=== PATIENT | female | born 1940 | race Caucasian/White ===

== ENCOUNTER 2017-02-14 11:03 | Observation (INO) | payer OTHER ==
[~2017-02-14] VITALS: Ht 165.1 cm; Wt 69.4 kg
[~2017-02-14 11:03] MED LIST: ALBUTEROL; ALPR1TAB10 PO; ASPI325T4 PO; CARV6.2512 PO; CHOL2000 PO; DIGO0.12 PO; FLUT1DIS3 INH; FURO40TA6 PO; HYDR-3342 PO; IRON15TA3 PO; ISOS10TA2 PO; LISI5TAB7 PO; MULT-717 PO; OXYC1TAB9 PO; SIMV20TA3 PO; SPIR25TA3 PO; TIOT18CA INH; VIT1CAPS42 PO; oxygen INH
[2017-02-14 12:00] VITALS: BP 130/60
[2017-02-14] MEDS ORDERED: CEFAZOLIN PMX 1GM/50ML 50 ML IV ONE (12:00)
[2017-02-14] MEDS ORDERED: CHOL20002 PO (12:26)
[2017-02-14] MEDS ORDERED: FURO40TA6 PO (12:26)
[2017-02-14 12:34] LABS: BLOOD UREA NITROGEN 14 mg/dL (7-18)
[2017-02-14] MEDS ORDERED: FENTANYL PF 100 MCG/2ML ONE (12:46)
[2017-02-14] MEDS ORDERED: MIDAZOLAM 1 MG/ML, 5ML ONE (12:46)
[2017-02-14] MEDS ORDERED: CEFAZOLIN PMX 1GM/50ML 50 ML ONE (12:47)
[2017-02-14] MEDS ORDERED: CEFAZOLIN 1,000 MG ONE (12:47)
[2017-02-14] MEDS ORDERED: LIDOCAINE 2%, 20ML ONE (12:47)
[2017-02-14] MEDS ORDERED: BUPIVACAINE 0.25% ONE (13:00)
[2017-02-14 15:58] VITALS: BP 107/57
[2017-02-14] MEDS: SODIUM CHLORIDE 0.9% 1,000 ML IV SCH (16:17)
[2017-02-14] MEDS: CARVEDILOL 6.25 MG TABLET PO SCH (17:23)
[2017-02-14] MEDS: OXYcodone/APAP 10/325MG TABLET PO PRN (17:24)
[2017-02-14] MEDS: IPRATROPIUM 0.5 MG/2.5 ML INHA NPPB SCH (18:35)
[2017-02-14 19:10] VITALS: BP 108/54
[2017-02-14] MEDS ORDERED: SIMVASTATIN 20 MG TABLET PO SCH (21:00)
[2017-02-14] MEDS: CEFAZOLIN PMX 1GM/50ML 50 ML IVPB SCH (21:33)
[2017-02-15] MEDS: IPRATROPIUM 0.5 MG/2.5 ML INHA NPPB SCH ×3 (00:48→07:05)
[2017-02-15] MEDS: OXYcodone/APAP 10/325MG TABLET PO PRN ×2 (02:19→09:14)
[2017-02-15 03:00] VITALS: BP 111/59
[2017-02-15] MEDS: CARVEDILOL 6.25 MG TABLET PO SCH (06:14)
[2017-02-15] MEDS: CEFAZOLIN PMX 1GM/50ML 50 ML IVPB SCH (06:14)
[2017-02-15 07:14] VITALS: BP 100/57
[2017-02-15] MEDS: SODIUM CHLORIDE 0.9% 1,000 ML IV SCH (08:17)
[2017-02-15] MEDS ORDERED: DIGOXIN 0.125 MG TABLET PO SCH (09:00)
[2017-02-15] MEDS ORDERED: SPIRONOLACTONE 25 MG TABLET PO SCH (09:00)
[2017-02-15] MEDS ORDERED: FUROSEMIDE 40 MG TABLET PO SCH (09:00)
[2017-02-15] MEDS ORDERED: FLUTICASONE/VILANTEROL 100-25MCG/INH INH SCH (09:00)
[2017-02-15] MEDS ORDERED: FUROSEMIDE 20 MG/2 ML IV ONE (10:00)
== END 2017-02-15 11:46 | disposition home or self-care (01) ==
LOC: CACL 11:03 → 5SO 14:31 → INTOOBSV 14:41 → 5SO 14:41 → CACL 14:41 → DCLOUNGE 02-15 11:23
PROVIDERS: ADMIT Internal Medicine Cardiovascular Disease; ATTEND Internal Medicine Cardiovascular Disease
DX: I50.22 Chronic systolic (congestive) heart failure (principal); I42.9 Cardiomyopathy, unspecified; I10 Essential (primary) hypertension; E78.5 Hyperlipidemia, unspecified; E87.5 Hyperkalemia; I25.10 Atherosclerotic heart disease of native coronary artery without angina pectoris; I45.9 Conduction disorder, unspecified; I49.1 Atrial premature depolarization; Z99.81 Dependence on supplemental oxygen; Z95.2 Presence of prosthetic heart valve; Z95.1 Presence of aortocoronary bypass graft
CPT/HCPCS: 33249; 36415; 71010; 80048; 85025; 85610; 93005; 94640; 96365; 96375; 96376; C1721; C1779; C1892; C1895; G0378; J0690; J1940; J2250; J3010; J3490; J7030; Q9967; J7644

== ENCOUNTER 2020-06-09 15:40 | Inpatient (IN) | payer MEDICARE, OTHER ==
[~2020-06-09] VITALS: Ht 165.1 cm; Wt 53.3 kg
[~2020-06-09 15:40] MED LIST changes: +ASPI325T17 PO; -ASPI325T4 PO; +CHOL20002 PO; +OXYC1TAB18 PO; -OXYC1TAB9 PO; +SIMV20TA19 PO; -SIMV20TA3 PO; -SPIR25TA3 PO; +SPIR25TA5 PO
[2020-06-09] MEDS ORDERED: SODIUM CHLORIDE 0.9% 1,000ML IVBOLUS ONE ×2 (16:00→17:00)
[2020-06-09] MEDS ORDERED: SODIUM CHLORIDE FLUSH 10ML SYR IVF ONE (16:00)
--- NOTE | 2020-06-09 16:00 | NUR ---
PT PLACED IN HOSPITAL GOWN. PT ON CARDIAC AND VITALS MONITORS. PT RECTAL TEMP 94.8. HEATER HOSE PLACED ON PT. ERP AWARE. PT A&OX2. PT MOSTLY DOZING OFF AND ON. WILL CONTINUE TO MONITOR.
[2020-06-09 16:19] LABS: MEAN CORPUSCULAR HEMOGLOBIN 20.6 pg (27.0-34.8); MEAN CORPUSCULAR VOLUME 70.4 fL (80-100); PLATELET COUNT 187 x10^3/uL (130-400); RED CELL DISTRIBUTION WIDTH 19.9 % (9.6-15.2)
[2020-06-09 16:25] LABS: MEAN CORPUSCULAR HGB CONC 29.2 g/dL (32.4-35.8)
[2020-06-09 16:26] LABS: ALANINE AMINOTRANSFERASE 18 U/L (12-78); ALBUMIN 2.9 g/dL (3.4-5.0); CALCIUM 8.2 mg/dL (8.5-10.1); CHLORIDE 99 mmol/L (98-107); CREATININE 2.36 mg/dL (0.55-1.02)
[2020-06-09 16:30] LABS: ALKALINE PHOSPHATASE 86 U/L (45-117); BILIRUBIN,TOTAL 0.9 mg/dL (0.2-1.0); TOTAL PROTEIN 6.5 g/dL (6.4-8.2); TROPONIN I 0.051 ng/mL (0.000-0.045)
[2020-06-09] MEDS ORDERED: FUROSEMIDE 40 MG/4 ML IV ONE ×2 (16:30→23:00)
[2020-06-09 16:32] LABS: ANION GAP 7 mmol/L (5-15)
[2020-06-09] MEDS ORDERED: FUROSEMIDE 40 MG/4 ML ONE (16:36)
[2020-06-09 16:42] LABS: BASOPHILS # (AUTO) 0.01 x10^3/uL (0-0.1); BASOPHILS % (AUTO) 0 % (0-1); EOSINOPHILS # (AUTO) 0.05 x10^3/uL (0-0.4); EOSINOPHILS % (AUTO) 1 % (1-7); LYMPHOCYTES # (AUTO) 0.53 x10^3/uL (1-3.4); LYMPHOCYTES % (AUTO) 8 % (22-44); MD MORPH REVIEW ONLY; MONOCYTES # (AUTO) 0.43 x10^3/uL (0.2-0.8); MONOCYTES % (AUTO) 6 % (2-9); NEUTROPHILS # (AUTO) 6.05 x10^3/uL (1.8-6.8); NEUTROPHILS % (AUTO) 86 % (42-75)
[2020-06-09 16:43] LABS: ANISOCYTOSIS 1+; HYPOCHROMIA 1+; MICROCYTOSIS 1+
[2020-06-09 16:44] LABS: OVALOCYTES 1+; POLYCHROMASIA 1+
[2020-06-09 16:46] LABS: <PLATELET ESTIMATE> ADEQUATE; <PLT MORPHOLOGY> NORMAL PLT MORPH; TEAR DROPS 1+
--- NOTE | 2020-06-09 16:55 | NUR ---
PT BP HAS MADE SMALL IMPROVEMENT AFTER FIRST LITER INFUSED. 2ND LITER HUNG. PT REMAINS DOZING OFF AND ON. PT IS EASILY AROUSABLE. PT MEDICATED WITH ORDERED DIURETIC. WILL CONTINUE TO MONITOR.
--- NOTE | 2020-06-09 17:21 | NUR ---
BEDSIDE REPORT GIVEN TO ENOCH ORDONEZ. PT BP HAS DROPPED DESPITE ODERED FLUID ADMINISTRATION. PT IS RESTING CALMLY IN BED, NO STATED NEEDS NOR PAIN. PT MOVED TO TR03.
--- NOTE | 2020-06-09 17:22 | NUR ---
REPORT FROM CHUCKIE RN, PT MOVED TO T3 FOR CENTRAL LINE PLACEMENT. BP 85/38 MAP 54, ORAL TEMP 93.7
--- NOTE | 2020-06-09 17:23 | NUR ---
LAB AT BEDSIDE FOR ABG
[2020-06-09] MEDS ORDERED: CALCIUM CHLORIDE 10%, 10ML SYR ONE (17:28)
[2020-06-09] MEDS ORDERED: SODIUM BICARB 8.4%, 50ML SYRINGE ONE (17:29)
[2020-06-09] MEDS ORDERED: CALCIUM CHLORIDE 10%, 10ML SYR IVPush ONE (17:30)
[2020-06-09] MEDS ORDERED: SODIUM BICARBONATE 1 MEQ/ML, 50ML VIAL IVPush ONE (17:30)
[2020-06-09 17:50] LABS: MICROSCOPIC AUTO
[2020-06-09] MEDS: NOREPINEPHRINE 8 MG in SODIUM CHLORIDE 0.9% 242 ML IV PRN (18:17)
--- NOTE | 2020-06-09 18:19 | NUR ---
CENTRAL LINE INSERTED BY DR.SULLIVAN CUMMINGS WITH STERILE TECHNIQUE ASSISTED BY MY SELF AND MARICHUY MENENDEZ. SEE CENTRAL LINE CHECKLIST. PT TOLERATED WELL. XRAY COMPLETE
--- NOTE | 2020-06-09 18:20 | NUR ---
CALCIUM CHLORIDE AND BICARB DOSE NOT SCANNING, VERIFIED CORRECT DOSE WITH LAURI RN.
[2020-06-09] MEDS ORDERED: DOXY100T PO (18:28)
[2020-06-09] MEDS ORDERED: ALBUTEROL SULFATE NEB (18:28)
[2020-06-09] MEDS ORDERED: FLONASE NAS (18:28)
[2020-06-09] MEDS ORDERED: UMEC62.5 INH (18:28)
[2020-06-09] MEDS ORDERED: AFRIN NAS (18:28)
[2020-06-09] MEDS ORDERED: FLUT1AER INH (18:28)
[2020-06-09] MEDS ORDERED: DOCU100C33 PO (18:28)
[2020-06-09] MEDS ORDERED: CEFTRIAXONE PMX 1GM/50ML 50 ML IV ONE (18:30)
[2020-06-09] MEDS ORDERED: POTA10CA PO (18:33)
[2020-06-09] MEDS ORDERED: NYST1000 PO (18:33)
[2020-06-09] MEDS ORDERED: ALBU90AE INH (18:33)
[2020-06-09] MEDS ORDERED: TIOT4MIS5 INH (18:33)
[2020-06-09] MEDS ORDERED: MAGN400T9 PO (18:33)
[2020-06-09] MEDS ORDERED: VITA80004 PO (18:36)
[2020-06-09] MEDS ORDERED: OXYC10TA6 PO (18:37)
[2020-06-09] MEDS ORDERED: SODIUM ZIRCONIUM CYCLOSILICATE 10 GM PO ONE (19:00)
--- NOTE | 2020-06-09 19:01 | NUR ---
PER LAB MORE URINE NEEDED FOR ADDITIONAL TESTING
[2020-06-09] MEDS ORDERED: CEFTRIAXONE PMX 1GM/50ML 50 ML ONE (19:05)
--- NOTE | 2020-06-09 19:12 | NUR ---
REPORT FROM ENOCH ASSUMED CARE OF PT AT THIS TIME,DR RAMIREZ VERBALIZED OK TO USE CENTRAL LINE AT THIS TIME
[2020-06-09 19:21] LABS: CHLORIDE,URINE RANDOM 21 mmol/L; POTASSIUM,URINE RANDOM 32 mmol/L; SODIUM,URINE RANDOM 15 mmol/L
--- NOTE | 2020-06-09 19:24 | NUR ---
DAWNA [id number]
[2020-06-09 19:39] LABS: OSMOLALITY,URINE 122 mOsm/kg (500-850)
[2020-06-09] MEDS ORDERED: HEPARIN 5,000 UNITS/ML, 1ML ONE (20:18)
[2020-06-09] MEDS ORDERED: FAMOTIDINE 20 MG/2 ML ONE (20:21)
[2020-06-09] MEDS: HEPARIN 5,000 UNITS/ML, 1ML SQ SCH (20:24)
[2020-06-09] MEDS: FAMOTIDINE 20 MG/2 ML IVPush SCH (20:24)
--- NOTE | 2020-06-09 20:29 | NUR ---
PT CCU HOLD IN NAD PT RESTING COMFORTABLY ANSWERS QUESTIONS APPROPRIATELY AT TIMES
--- NOTE | 2020-06-09 20:53 | NUR ---
PLACED PT ON ICU BED FOR COMFORT
--- NOTE | 2020-06-09 21:03 | NUR ---
PT PLACED ON BI PAP PER MD ORDER 07/13 50% FIO2 TOLERATING WELL
--- NOTE | 2020-06-09 21:11 | NUR ---
dr venegas called updated MD ON PT CONDITION
--- NOTE | 2020-06-09 21:58 | NUR ---
REPORT RECEIVED FROM JOSÉ LUIS EDDY. PATIENT'S STATUS IS STABLE. PATIENT'S BLOOD PRESSURE MAINTAINING R/T LEVOPHED DRIP AT 0.16. PATIENT WILL HAVE DIALYSIS PORT PLACED AND DIALYSIS AT MIDNIGHT TONIGHT. VITAL SIGNS STABLE. WILL CONTINUE TO MONITOR.
--- NOTE | 2020-06-09 22:04 | NUR ---
REPORT TO OMAR
--- NOTE | 2020-06-09 22:51 | NUR ---
MD AT BEDSIDE FOR PLACEMENT OF DIALYSIS CATH. CONSENTS VERIFIED. PATIENT'S BIPAP PAUSED, PLACED ON SIMPLE FACE MASK AT 2L FOR PROCEDURE. DIALYSIS CALLED, APPROXIMATE ARRIVAL TIME AT 1-2AM.
--- NOTE | 2020-06-09 23:27 | NUR ---
TEMPORARY DIALYSIS CATH HAS BEEN PLACED SUCCESSFULLY. PATIENT TOLERATED WELL. PATIENT PLACED BACK ON BIPAP AT ORIGINAL SETTINGS OF 50%FIO2.
--- NOTE | 2020-06-09 23:28 | NUR ---
BEARHUGGER PLACED DUE TO PATIENT'S LOW TEMP. PLACED ON LOW SETTING AT 32C. PATIENT TOLERATING WELL.
--- NOTE | 2020-06-10 00:30 | NUR ---
PATIENT CONTINUES TO REMAIN HYPOTENSION OF MAP BELOW 65, TITRATION OF LEVOPHED ACCORDINGLY. TRAVERTINE INSTALLER IN DEPARTMENT.
[2020-06-10 00:40] LABS: TROPONIN I 0.074 ng/mL (0.000-0.045)
--- NOTE | 2020-06-10 00:52 | NUR ---
HAND RIGGER AT BEDSIDE WITH PATIENT. PATIENT UPDATED ON PLAN OF CARE.
--- NOTE | 2020-06-10 01:13 | NUR ---
PATIENT'S DIALYSIS STARTED.
--- NOTE | 2020-06-10 01:35 | NUR ---
PATIENT'S BLOOD PRESSURE HAS DROPPED R/T DIALYSIS. WILL INCREASE LEVOPHED FOR DIALYSIS TREATMENT AND CONTINUE TITRATING AFTER TREATMENT IS FINISHED.
--- NOTE | 2020-06-10 03:06 | NUR ---
DIALYSIS CONTINUES. BLOOD PRESSURE IS STABLIZING. PATIENT TOLERATING WELL. WHEN PATIENT IS FINISHED WITH DIALYSIS BIPAP WILL BE DISCONTINUED.
--- NOTE | 2020-06-10 03:09 | NUR ---
BEAR-HUGGER DISCONTINUED. PATIENT'S TEMPERATURE AT 98.2.
[2020-06-10] MEDS ORDERED: LORazepam 2 MG/ML, 1ML ONE (03:30)
[2020-06-10] MEDS: LORazepam 2 MG/ML, 1ML IVPush PRN (03:32)
--- NOTE | 2020-06-10 03:37 | NUR ---
PATIENT HAS BECOME RESTLESS, AND AGITATED. SPOKE WITH MD ELIZABETH. APPROVED FOR Q4HR ATIVAN 0.5MG TO BE ADMINISTERED FOR ANXIETY/AGITATION. PATIENT GIVEN BREAK FROM BIPAP AND MOUTH SWABS IN ATTEMPT TO IMPROVE ANXIOUSNESS. UNSUCCESSFUL. PATIENT GIVEN MEDICATION IN ATTEMPTS TO CONTINUE DIALYSIS. VITAL SIGNS SUPPORT DOSAGE OF ATIVAN
--- NOTE | 2020-06-10 03:46 | NUR ---
RESPIRATORY IN ROOM WITH PATIENT TO TAKE PATIENT OFF BIPAP. PATIENT IS PLACED ON NASAL CANNULA. WILL EVALUATE HOW PATIENT TOLERATES NASAL CANNULA. VTIAL SIGNS REMAIN STABLE.
--- NOTE | 2020-06-10 03:52 | NUR ---
PATIENT HAS CALMED WITH ATIVAN DOSAGE. BLOOD PRESSURE STABLE WITH DOSAGE. PATIENT UPDATED ON PLAN OF CARE. NO NOTED NEEDS AT THIS TIME. WILL CONTINUE TO MONITOR.
--- NOTE | 2020-06-10 04:14 | NUR ---
WILL HOLD AM LABS UNTIL DIALYSIS HAS FINISHED. ONE HOUR LEFT ON DIALYSIS.
--- NOTE | 2020-06-10 05:09 | NUR ---
PATIENT'S HAD NO CHANGES. DIALYSIS IS FINISHING, DIALYSIS NURSE UPDATED ON PATIENT'S PLAN OF CARE. PATIENT RESTING IN BED COMFORTABLE. NO NOTED ADDITIONAL NEEDS. WILL CONTINUE TO MONITOR.
--- NOTE | 2020-06-10 05:17 | NUR ---
DIALYSIS HAS COMPLETED. DERRICK WORKER WELL SERVICE REPORTS 3L OF FLUID TAKEN OFF PATIENT.
--- NOTE | 2020-06-10 05:32 | NUR ---
PATIENT'S CARDIAC RHYTHM CHANGED, CHANGE IN BLOOD PRESSURE WITH CHANGE IN RHYTHM. NO CHANGE IN MENTAL STATUS, BILATERAL RADIAL PULSES PRESENT. PATIENT DENIES ANY PAIN AT THIS TIME. PATIENT HAS FINISHED DIALYSIS. MESSAGED MD ELIZABETH, OBTAINED EKG. EKG WAS COMPLETED WHEN PATIENT HAD CONVERTED BACK TO BASELINE RHYTHM. PATIENT'S BLOOD PRESSURE HAS RECOVERED. AM LABS, WITH ABG COLLECTED.
[2020-06-10 05:44] LABS: FIO2 RA %
[2020-06-10 05:47] LABS: MEAN CORPUSCULAR HEMOGLOBIN 20.3 pg (27.0-34.8); MEAN CORPUSCULAR VOLUME 70.4 fL (80-100); PLATELET COUNT 212 x10^3/uL (130-400); RED BLOOD COUNT 5.27 x10^6/uL (3.82-5.3); RED CELL DISTRIBUTION WIDTH 19.8 % (9.6-15.2)
[2020-06-10 05:58] LABS: ALANINE AMINOTRANSFERASE 18 U/L (12-78); ALBUMIN 3.1 g/dL (3.4-5.0); ANION GAP 10 mmol/L (5-15); CHLORIDE 101 mmol/L (98-107); CREATININE 1.06 mg/dL (0.55-1.02)
[2020-06-10 05:59] LABS: IRON LEVEL 15 mcg/dL (50-170)
[2020-06-10 06:00] LABS: % IRON SATURATION 3 % (20-55); ALKALINE PHOSPHATASE 94 U/L (45-117); TOTAL IRON BINDING CAPACITY 470 mcg/dL (250-450); TOTAL PROTEIN 7.1 g/dL (6.4-8.2)
--- NOTE | 2020-06-10 06:03 | NUR ---
WILL ATTEMPT TO TITRATE DOWN ON LEVOPHED R/T DIALYSIS BEING COMPLETED. WILL AWAIT TO SEE HOW PATIENT TOLERATES DECREASE IN LEVOPHED DRIP RATE.
[2020-06-10 06:18] LABS: MD YES
[2020-06-10] MEDS ORDERED: HEPARIN 5,000 UNITS/ML, 1ML ONE (06:23)
[2020-06-10] MEDS: HEPARIN 5,000 UNITS/ML, 1ML SQ SCH ×3 (06:24→22:28)
[2020-06-10 06:26] LABS: LYMPH#(MANUAL) 0.62 x10^3/uL (1-3.4); LYMPHS% (MANUAL) 5 % (22-44); MONOS#(MANUAL) 1.12 x10^3/uL (0.3-2.7); MONOS% (MANUAL) 9 % (2-9); NRBC % (MANUAL) 7 % (0-1); SEG#(MANUAL) 10.66 x10^3/uL (1.8-6.8); SEGS% (MANUAL) 86 % (42-75)
[2020-06-10 06:27] LABS: ANISOCYTOSIS 2+; HYPOCHROMIA 2+; MICROCYTOSIS 2+; OVALOCYTES 1+; POLYCHROMASIA 1+; TEAR DROPS 1+
[2020-06-10 06:29] LABS: <PLATELET ESTIMATE> ADEQUATE; <PLT MORPHOLOGY> NORMAL PLT MORPH
--- NOTE | 2020-06-10 06:44 | NUR ---
REPORT GIVEN TO BILL
[2020-06-10 06:56] LABS: MEAN CORPUSCULAR HGB CONC 28.8 g/dL (32.4-35.8)
--- NOTE | 2020-06-10 06:59 | NUR ---
SBAR BEDSIDE HAND-OFF REPORT RECEIVED FROM JOSÉ LUIS NELSON. ASSUMING CARE OF PATIENT. PATIENT IS SLEEPING AT THIS TIME. VITAL SIGNS ARE STABLE. SHE IS ON CONTINUOUS CARDIAC, SPO2 MONITORS WITH BLOOD PRESSURE SET TO Q15 MINUTES. SHE REMAINS ON LEVOPHED AT 0.66 MCG/KG/MIN WITH A BLOOD PRESSURE AT THIS TIME OF 110/43 (MAP OF 72). WILL CONTINUE TO MONITOR FREQUENTLY.
--- NOTE | 2020-06-10 07:35 | NUR ---
SBAR TELEPHONE HAND-OFF REPORT GIVEN TO JOSÉ LUIS ANDERSON IN CCU. PT TO GO TO CCU SOON.
--- NOTE | 2020-06-10 07:42 | NUR ---
DR. ARIAS AT BEDSIDE.
[2020-06-10] MEDS: NOREPINEPHRINE 8 MG in SODIUM CHLORIDE 0.9% 242 ML IV PRN ×4 (07:47→19:16)
--- NOTE | 2020-06-10 07:48 | NUR ---
NEW BAG OF LEVOPHED HUNG AT THE SAME RATE OF 0.66MCG/KG/MIN.
[2020-06-10] MEDS: FAMOTIDINE 20 MG/2 ML IVPush SCH (09:49)
[2020-06-10] MEDS ORDERED: OXYcodone IR 5MG TABLET PO PRN (10:30)
[2020-06-10] MEDS: FUROSEMIDE 20 MG/2 ML IV SCH (10:58)
[2020-06-10] MEDS: SENNA/DOCUSATE TABLET PO SCH (10:59)
[2020-06-10 12:46] LABS: ALBUMIN 2.9 g/dL (3.4-5.0); ANION GAP 9 mmol/L (5-15); CALCIUM 7.5 mg/dL (8.5-10.1); CHLORIDE 103 mmol/L (98-107); CREATININE 1.23 mg/dL (0.55-1.02)
[2020-06-10] MEDS ORDERED: MORPHINE SULFATE 4 MG/ML, 1ML IVPush PRN (14:00)
[2020-06-10] MEDS: CEFTRIAXONE PMX 1GM/50ML 50 ML IVPB SCH (18:48)
[2020-06-10] MEDS: NOREPINEPHRINE 32 MG in SODIUM CHLORIDE 0.9% 218 ML IV PRN (20:27)
[2020-06-11 04:00] VITALS: BP 93/42
[2020-06-11 05:46] LABS: ALBUMIN 2.5 g/dL (3.4-5.0); ANION GAP 9 mmol/L (5-15); CALCIUM 7.5 mg/dL (8.5-10.1); CHLORIDE 106 mmol/L (98-107)
[2020-06-11 05:51] LABS: ALANINE AMINOTRANSFERASE 17 U/L (12-78); ALKALINE PHOSPHATASE 78 U/L (45-117); BILIRUBIN,TOTAL 0.9 mg/dL (0.2-1.0); CREATININE 1.19 mg/dL (0.55-1.02)
[2020-06-11 05:57] LABS: MEAN CORPUSCULAR HEMOGLOBIN 20.9 pg (27.0-34.8); MEAN CORPUSCULAR VOLUME 69.8 fL (80-100); PLATELET COUNT 149 x10^3/uL (130-400); RED BLOOD COUNT 4.62 x10^6/uL (3.82-5.3); RED CELL DISTRIBUTION WIDTH 20.5 % (9.6-15.2)
[2020-06-11 05:58] LABS: MD YES
[2020-06-11 06:00] LABS: LYMPH#(MANUAL) 0.36 x10^3/uL (1-3.4); LYMPHS% (MANUAL) 4 % (22-44); MONOS#(MANUAL) 0.81 x10^3/uL (0.3-2.7); MONOS% (MANUAL) 9 % (2-9); NRBC % (MANUAL) 1 % (0-1); SEG#(MANUAL) 7.83 x10^3/uL (1.8-6.8); SEGS% (MANUAL) 87 % (42-75)
[2020-06-11 06:01] LABS: <PLATELET ESTIMATE> ADEQUATE; <PLT MORPHOLOGY> NORMAL PLT MORPH; ANISOCYTOSIS 1+; HYPOCHROMIA 1+; MICROCYTOSIS 1+; OVALOCYTES 1+; POLYCHROMASIA 1+; TEAR DROPS 1+
[2020-06-11] MEDS: HEPARIN 5,000 UNITS/ML, 1ML SQ SCH ×3 (06:28→20:37)
[2020-06-11] MEDS ORDERED: POTASSIUM CHLORIDE 40 MEQ in SODIUM CHLORIDE 0.9% 100 ML IV ONE (07:30)
[2020-06-11] MEDS ORDERED: MAGNESIUM SULFATE PMX 2GM/50ML 50 ML IV ONE (07:30)
[2020-06-11] MEDS: SENNA/DOCUSATE TABLET PO SCH (09:00)
[2020-06-11] MEDS: FUROSEMIDE 20 MG/2 ML IV SCH (09:46)
[2020-06-11] MEDS: FAMOTIDINE 20 MG/2 ML IVPush SCH (09:46)
[2020-06-11 14:49] LABS: ANA SCREEN POSITIVE (Negative); ANTI-NUCLEAR ANTIBODY PATTERN SPECKLED
[2020-06-11] MEDS ORDERED: ALBUMIN HUMAN 25% 100 ML IV PRN (15:30)
[2020-06-11] MEDS ORDERED: ALBUMIN HUMAN 25% 50 ML IV PRN (15:30)
[2020-06-11] MEDS: CEFTRIAXONE PMX 1GM/50ML 50 ML IVPB SCH (20:36)
[2020-06-11] MEDS ORDERED: TEMPLATE NON-FORMULARY MED. (COMBIVENT RESPIMAT 2 PUFFS) INH SCH (21:00)
[2020-06-11] MEDS ORDERED: ALBUTEROL HFA 90 MCG/SPRAY INH PRN (21:00)
[2020-06-12] MEDS: LORazepam 2 MG/ML, 1ML IVPush PRN (00:36)
[2020-06-12 04:00] VITALS: BP 104/44
[2020-06-12] MEDS: NOREPINEPHRINE 32 MG in SODIUM CHLORIDE 0.9% 218 ML IV PRN (05:47)
[2020-06-12] MEDS: HEPARIN 5,000 UNITS/ML, 1ML SQ SCH ×3 (05:47→21:56)
[2020-06-12] MEDS: SENNA/DOCUSATE TABLET PO SCH (09:00)
[2020-06-12] MEDS: FLUTICASONE/VILANTEROL 200-25MCG/INH INH SCH (09:00)
[2020-06-12] MEDS: TIOTROPIUM BROMIDE 18 MCG/INH INH SCH (09:00)
[2020-06-12] MEDS: FUROSEMIDE 20 MG/2 ML IV SCH (11:29)
[2020-06-12] MEDS: FAMOTIDINE 20 MG/2 ML IVPush SCH (11:29)
[2020-06-12 12:03] LABS: ANION GAP 6 mmol/L (5-15); CALCIUM 8.2 mg/dL (8.5-10.1); CHLORIDE 104 mmol/L (98-107); CREATININE 0.87 mg/dL (0.55-1.02)
[2020-06-12 12:10] LABS: MEAN CORPUSCULAR HEMOGLOBIN 20.5 pg (27.0-34.8); MEAN CORPUSCULAR VOLUME 70.6 fL (80-100); MEAN PLATELET VOLUME 7.6 fL (7.4-10.4); PLATELET COUNT 123 x10^3/uL (130-400); RED BLOOD COUNT 4.97 x10^6/uL (3.82-5.3); RED CELL DISTRIBUTION WIDTH 20.5 % (9.6-15.2)
--- NOTE | 2020-06-12 12:36 | NUR ---
Patient would benefit from ongoing skilled TECHNOLOGY SPECIALIST services in [facility] Addendum: 06/12/20 at 1236 by KIM LOVETT Amended: Links added.
[2020-06-12 12:42] LABS: BASOPHILS % (AUTO) 0 % (0-1); EOSINOPHILS # (AUTO) 0.16 x10^3/uL (0-0.4); EOSINOPHILS % (AUTO) 2 % (1-7); LYMPHOCYTES # (AUTO) 0.63 x10^3/uL (1-3.4); LYMPHOCYTES % (AUTO) 9 % (22-44); MD SCAN; MONOCYTES # (AUTO) 0.53 x10^3/uL (0.2-0.8); MONOCYTES % (AUTO) 8 % (2-9); NEUTROPHILS # (AUTO) 5.54 x10^3/uL (1.8-6.8); NEUTROPHILS % (AUTO) 81 % (42-75)
[2020-06-12] MEDS: CEFTRIAXONE PMX 1GM/50ML 50 ML IVPB SCH (19:11)
[2020-06-13 03:32] LABS: ALANINE AMINOTRANSFERASE 16 U/L (12-78); ALBUMIN 2.8 g/dL (3.4-5.0); ANION GAP 7 mmol/L (5-15); CALCIUM 8.4 mg/dL (8.5-10.1); CHLORIDE 105 mmol/L (98-107); CREATININE 0.86 mg/dL (0.55-1.02)
[2020-06-13 03:43] LABS: MEAN CORPUSCULAR HEMOGLOBIN 20.6 pg (27.0-34.8); MEAN CORPUSCULAR VOLUME 70.3 fL (80-100); MEAN PLATELET VOLUME 7.7 fL (7.4-10.4); PLATELET COUNT 139 x10^3/uL (130-400); RED BLOOD COUNT 4.85 x10^6/uL (3.82-5.3); RED CELL DISTRIBUTION WIDTH 20.7 % (9.6-15.2)
[2020-06-13 03:58] LABS: ALKALINE PHOSPHATASE 68 U/L (45-117); BILIRUBIN,TOTAL 0.7 mg/dL (0.2-1.0); TOTAL PROTEIN 6.4 g/dL (6.4-8.2)
[2020-06-13 04:00] VITALS: BP 123/48
[2020-06-13 04:22] LABS: BASOPHILS # (AUTO) 0.02 x10^3/uL (0-0.1); BASOPHILS % (AUTO) 0 % (0-1); EOSINOPHILS # (AUTO) 0.09 x10^3/uL (0-0.4); EOSINOPHILS % (AUTO) 1 % (1-7); LYMPHOCYTES # (AUTO) 0.61 x10^3/uL (1-3.4); LYMPHOCYTES % (AUTO) 8 % (22-44); MD SCAN; MEAN CORPUSCULAR HGB CONC 29.2 g/dL (32.4-35.8); MONOCYTES # (AUTO) 0.57 x10^3/uL (0.2-0.8); MONOCYTES % (AUTO) 8 % (2-9); NEUTROPHILS # (AUTO) 6.36 x10^3/uL (1.8-6.8); NEUTROPHILS % (AUTO) 83 % (42-75)
[2020-06-13] MEDS ORDERED: FILTER 0.22 MICRON IV PRN (05:30)
[2020-06-13] MEDS ORDERED: AMIODARONE 450 MG in DEXTROSE 5% 241 ML IV PRN (05:30)
[2020-06-13] MEDS ORDERED: AMIODARONE 150 MG in DEXTROSE 5% 100 ML IV ONE (05:30)
[2020-06-13] MEDS: HEPARIN 5,000 UNITS/ML, 1ML SQ SCH (05:34)
[2020-06-13] MEDS: TIOTROPIUM BROMIDE 18 MCG/INH INH SCH (09:00)
[2020-06-13] MEDS: FLUTICASONE/VILANTEROL 200-25MCG/INH INH SCH (09:00)
[2020-06-13] MEDS: SENNA/DOCUSATE TABLET PO SCH (09:00)
[2020-06-13] MEDS ORDERED: LEVOTHYROXINE 100 MCG INJ IVPush SCH (10:30)
[2020-06-13] MEDS: FUROSEMIDE 20 MG/2 ML IV SCH (10:38)
[2020-06-13] MEDS: FAMOTIDINE 20 MG/2 ML IVPush SCH (10:38)
[2020-06-13 15:03] VITALS: BP 101/64
[2020-06-13] MEDS ORDERED: LORazepam 2 MG/ML, 1ML IVPush PRN (17:30)
[2020-06-13] MEDS ORDERED: ATROPINE OPHTH SOLN 1%, 5ML PO PRN (17:30)
[2020-06-13] MEDS ORDERED: ONDANSETRON 2MG/ML, 2ML IVPush PRN (17:30)
[2020-06-13] MEDS ORDERED: MORPHINE 30MG/30ML PCA.SYR IV PRN (17:30)
[2020-06-13] MEDS ORDERED: SCOPOLAMINE 1MG PATCH TD SCH (17:30)
[2020-06-13] MEDS: MORPHINE SULFATE 4 MG/ML, 1ML IVPush PRN (17:50)
[2020-06-13] MEDS: LORazepam 2 MG/ML, 1ML IVPush SCH (18:39)
[2020-06-14] MEDS: LORazepam 2 MG/ML, 1ML IVPush SCH ×2 (00:13→06:27)
[2020-06-14] MEDS: MORPHINE SULFATE 4 MG/ML, 1ML IVPush PRN (03:27)
== END 2020-06-14 10:45 | disposition expired | DRG 871 ==
LOC: ED 16:42 → EDIP 18:27 → CCU 06-10 08:11 → 4NW 06-13 12:39
PROVIDERS: ADMIT Family Medicine; ATTEND Hospitalist
PROC: 0T9B70Z Drainage of Bladder with Drainage Device, Via Natural or Artificial Opening (ICD-10-PCS; principal; 2020-06-09)
PROC: 02HV33Z Insertion of Infusion Device into Superior Vena Cava, Percutaneous Approach (ICD-10-PCS; 2020-06-09)
PROC: B548ZZA Ultrasonography of Superior Vena Cava, Guidance (ICD-10-PCS; 2020-06-09)
PROC: 5A09357 Assistance with Respiratory Ventilation, Less than 24 Consecutive Hours, Continuous Positive Airway Pressure (ICD-10-PCS; 2020-06-09)
PROC: 02H633Z Insertion of Infusion Device into Right Atrium, Percutaneous Approach (ICD-10-PCS; 2020-06-09)
PROC: B548ZZA Ultrasonography of Superior Vena Cava, Guidance (ICD-10-PCS; 2020-06-09)
PROC: 5A09357 Assistance with Respiratory Ventilation, Less than 24 Consecutive Hours, Continuous Positive Airway Pressure (ICD-10-PCS; 2020-06-10)
PROC: 5A1D70Z Performance of Urinary Filtration, Intermittent, Less than 6 Hours Per Day (ICD-10-PCS; 2020-06-10)
PROC: 5A09357 Assistance with Respiratory Ventilation, Less than 24 Consecutive Hours, Continuous Positive Airway Pressure (ICD-10-PCS; 2020-06-11)
PROC: 5A09357 Assistance with Respiratory Ventilation, Less than 24 Consecutive Hours, Continuous Positive Airway Pressure (ICD-10-PCS; 2020-06-13)
DX: A41.9 Sepsis, unspecified organism (principal); I50.23 Acute on chronic systolic (congestive) heart failure; I21.A1 Myocardial infarction type 2; J96.02 Acute respiratory failure with hypercapnia; G93.41 Metabolic encephalopathy; R65.21 Severe sepsis with septic shock; I13.0 Hypertensive heart and chronic kidney disease with heart failure and stage 1 through stage 4 chronic kidney disease, or unspecified chronic kidney disease; N17.9 Acute kidney failure, unspecified; E87.1 Hypo-osmolality and hyponatremia; J98.11 Atelectasis; K80.00 Calculus of gallbladder with acute cholecystitis without obstruction; M48.56XA Collapsed vertebra, not elsewhere classified, lumbar region, initial encounter for fracture; I42.8 Other cardiomyopathies; N39.0 Urinary tract infection, site not specified; E87.5 Hyperkalemia; D64.9 Anemia, unspecified; E78.5 Hyperlipidemia, unspecified; N18.9 Chronic kidney disease, unspecified; B96.1 Klebsiella pneumoniae [K. pneumoniae] as the cause of diseases classified elsewhere; B96.89 Other specified bacterial agents as the cause of diseases classified elsewhere; D50.9 Iron deficiency anemia, unspecified; E03.9 Hypothyroidism, unspecified; I07.1 Rheumatic tricuspid insufficiency; I25.10 Atherosclerotic heart disease of native coronary artery without angina pectoris; I27.20 Pulmonary hypertension, unspecified; I35.1 Nonrheumatic aortic (valve) insufficiency; I35.8 Other nonrheumatic aortic valve disorders; I70.8 Atherosclerosis of other arteries; J44.9 Chronic obstructive pulmonary disease, unspecified; N20.0 Calculus of kidney; Z51.5 Encounter for palliative care; Z66 Do not resuscitate; Z80.1 Family history of malignant neoplasm of trachea, bronchus and lung; Z82.49 Family history of ischemic heart disease and other diseases of the circulatory system; Z85.51 Personal history of malignant neoplasm of bladder; Z87.891 Personal history of nicotine dependence; Z95.0 Presence of cardiac pacemaker; Z95.1 Presence of aortocoronary bypass graft; Z95.2 Presence of prosthetic heart valve
CPT/HCPCS: 36415; 36556; 36600; 70450; 71045; 74018; 74230; 76770; 76937; 80048; 80053; 80069; 80162; 81001; 82140; 82306; 82330; 82436; 82533; 82607; 82728; 82803; 83516; 83520; 83540; 83550; 83605; 83735; 83880; 83935; 83970; 84100; 84132; 84133; 84300; 84443; 84484; 84550; 85025; 86038; 86039; 86160; 86162; 86225; 86256; 86705; 86706; 87040; 87077; 87081; 87086; 87186; 87340; 90935; 93005; 93306; 94660; 96361; 96374; 96375; 99292; G0378; J0696; J1644; J1940; J3480; J7060; P9047; C1751; J0282; J1642; J2060; J2270; J3475; J3490; J7030; J7050